=== PATIENT | female | born 1990 | race Caucasian/White ===

== ENCOUNTER 2016-11-10 23:10 | Emergency (ER) | payer OTHER ==
[2016-11-10 23:16] VITALS: RESP 16
[2016-11-10] MEDS ORDERED: AMOXICILLIN/CLAVULANATE POT 875/125 MG TAB PO ONE (23:31)
--- NOTE | 2016-11-10 23:33 | EDPHY ---
General Narrative: CHIEF COMPLAINT: Dog bite to right forearm HISTORY OF PRESENT ILLNESS: Patient complains of dog bite to the right forearm. This happened about 1 hour ago. This was an acquaintance is dog. The dog is in their custody. The dog is up-to-date on immunizations to the best of her knowledge. Injuries to the right forearm. This was an accidental injury. Moderately painful. Minimal bleeding. She is here because she is concerned that it would get infected. She has no complaints distally. She thinks that her tetanus is up-to-date. She has no other associated complaints or modifying factors. TIME OF INJURY: Less than 1 hour prior to arrival TETANUS STATUS: Up-to-date per patient MEDICAL/SURGICAL/SOCIAL HISTORY: Attention deficit hyperactivity disorder on prescription Vyvanse REVIEW OF SYSTEMS: Ten systems reviewed and are negative unless otherwise noted in the HPI EXAMINATION General Appearance: Alert, no distress Head: normocephalic, atraumatic Cardiovascular: Pulses normal throughout. Symmetric radial pulses 2+ Brisk cap refill Neurological: A&O, sensory symmetric, strength symmetric. Skin: Warm and dry, no rash. There is a puncture wound to the dorsum of the right forearm proximally. This is approximately 1 cm in triangular. There is exposure of the subcutaneous fat. There is no obvious foreign body or exposure of the underlying muscle or fascia. Neurovascular intact distal to the injury Extremities: Tender over the right forearm puncture wound. Range of motion of the right hand, wrist, elbow is fully intact without deficit. No bony tenderness of the right upper extremity. DIFFERENTIAL DIAGNOSES: Including but not limited to dog bite MDM: 11:30 p.m. Dog bite to the right forearm. I have anesthetize this area with lidocaine. Proceed with irrigation. Area is very small, 1 cm. I feel that she would be best served with Steri-Strips and not a tight closure. I will treat her with Augmentin prophylaxis. 11:40 p.m. Wound has been irrigated. I have applied a Steri-Strip. I discussed delayed closure with her. She may return here in 48-72 hours for suture repair if she would like. She also may let the wound heal by secondary intention with Steri- Strips. Augmentin started here. Continue for 10 day prophylaxis course. ED precautions discussed for redness, swelling, purulence, pain, fever. She is comfortable with this plan and discharged home in stable condition Procedure: local anesthesia Indication: Dog bite Consent: Verbal Location: Right forearm Description: Areas surrounding a dog bite puncture wound was prepped with chlorhexidine. 1% lidocaine with 0.5% bupivacaine, 3 mL as of each, was infused to the area of injury. Good anesthesia. Tolerated well. No complication. ED Precautions: Worsening pain. Erythema, edema, cyanosis, pallor, paresthesia or anesthesia. - History Smoking Status: Never smoked - Objective Vital Signs: Initial Vital Signs Temperature (C) 99.0 F 11/10/16 23:12 Heart Rate 82 11/10/16 23:12 Respiratory Rate 16 11/10/16 23:12 Blood Pressure 130/95 H 11/10/16 23:12 O2 Sat (%) 97 11/10/16 23:12 O2 Delivery Mode Room Air Allergies/Adverse Reactions: No Known Allergies Allergy (Verified 11/10/16 23:16) Home Medications: Medication Instructions Recorded Amoxicillin/Clavulanate Pot 875 mg PO BID #20 tab 11/10/16 [Augmentin 875 MG TAB (*)] Vyvanse 11/10/16 Medications Given: Discontinued Medications Amoxicillin/Clavulanate Potassium (Augmentin 875mg) 875 mg PO EDNOW ONE PRN Reason: Protocol Stop: 11/10/16 23:32 Last Admin: 11/10/16 23:37 Dose: 875 mg Departure - Departure Disposition: Home, Routine, Self-Care Clinical Impression: Dog bite of extremity Condition: Good Instructions: Animal Bite (ED) Additional Instructions: 1. Augmentin as prescribed to completion 2. Wound check in 2 days with primary care physician 3. ED precautions as discussed Referrals: Kayla Interiano MD [Medical Doctor] - As per Instructions Prescriptions: Amoxicillin/Clavulanate Pot [Augmentin 875 MG TAB (*)] 875 mg PO BID #20 tab
[2016-11-11 00:02] VITALS: BP 118/66; PULSE 68; TEMP 97.7; O2SAT 94
== END 2016-11-11 00:01 | disposition home or self-care (01) ==
PROC: 3E0T3BZ Introduction of Anesthetic Agent into Peripheral Nerves and Plexi, Percutaneous Approach (ICD-10-PCS; principal; 2016-11-10)
DX: S51.851A Open bite of right forearm, initial encounter (principal); W54.0XXA Bitten by dog, initial encounter; Y99.8 Other external cause status

== ENCOUNTER 2017-03-14 22:43 | Emergency (ER) | payer OTHER ==
[2017-03-14 22:54] VITALS: BP 142/90; PULSE 92; RESP 16; TEMP 98.2; O2SAT 95
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
== END 2017-03-14 23:36 ==
DX: Z04.1 Encounter for examination and observation following transport accident (principal); V48.5XXA Car driver injured in noncollision transport accident in traffic accident, initial encounter; Y92.410 Unspecified street and highway as the place of occurrence of the external cause; Y99.8 Other external cause status